=== PATIENT | male | born 1975 | race Caucasian/White ===

== ENCOUNTER 2016-05-16 13:39 | Emergency (ER) | payer BC ==
[~2016-05-16] VITALS: Ht 180.3 cm; Wt 126.0 kg
--- OUTSIDE RECORDS SUMMARY | 2016-05-16 13:42 | XMS REPORT | Summary of Care ---
Author Author Chris Mckeon M.D. 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 Depression (311, F32.9) Status: Active Generalized anxiety disorder (300.02, F41.1) Status: Active Obstructive sleep apnea (327.23, G47.33) Status: Active 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, 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 Started 13-Feb-2014 Active Allergies and Adverse Reactions Name Dates Details No Known Drug Allergies Status: Active Procedures Procedure Dates Details Procedures not documented Immunization Name Dates Details Immunizations not documented Social History Name Dates Details Smoking StatusNever smoker Vital Signs Date Test Result Details 13-Feb-2014 14:44 BP Systolic 125 mm[Hg] Status: BP Diastolic 80 mm[Hg] Status: Heart Rate 69 /min Status: Weight 275 lb Status: Height 71 in Status: O2 SAT 98 % Status: Body Mass Index Calculated 38.35 kg/m2 Status: Body Surface Area Calculated 2.41 m2 Status: Results Date Description Value Details Results not documented Plan of Care Planned Observations Name Dates Details Planned Goals not documented Goal Instructions Instructions not documented Encounters Appointment; Chris Mckeon Encounter Diagnosis: Problem not documented On 13-Feb-2014 14:15 Appointment; Chris Mckeon Encounter Diagnosis: Problem not documented On 08-Dec-2013 15:45
[2016-05-16] MEDS ORDERED: FAMOTIDINE IV STA (14:09)
[2016-05-16] MEDS ORDERED: methylPREDNISolone 125 MG (Solu-MEDROL) VIAL IV STA (14:09)
[2016-05-16] MEDS ORDERED: SODIUM CHLORIDE IV STA (14:09)
[2016-05-16] MEDS ORDERED: ALBUTEROL 0.083% NEB SOLUTION 2.5 MG/3 ML VIAL INH STA (14:09)
[2016-05-16] MEDS ORDERED: SODIUM CHLORIDE FLUSH 10 ML SYR IV PRN (14:10)
[2016-05-16] MEDS ORDERED: diphenhydrAMINE 50 MG/ML INJ (BENADRYL) IV SCH (14:10)
[2016-05-16] MEDS ORDERED: SODIUM CHLORIDE FLUSH 3 ML SYR IV PRN (14:10)
[2016-05-16] MEDS ORDERED: PRED20TA PO (16:11)
[2016-05-16] MEDS ORDERED: ALBU8.5H2 IH (16:11)
[2016-05-16 16:56] VITALS: BP 107/62
== END 2016-05-16 16:54 | disposition home or self-care (01) ==
LOC: ED 13:41
DX: T78.3XXA Angioneurotic edema, initial encounter (principal); R06.02 Shortness of breath; R21 Rash and other nonspecific skin eruption; R06.2 Wheezing
CPT/HCPCS: 94640; 96361; 96374; 96375; 99283; J1200; J2930; J3490; J7030; J7050; J7613

== ENCOUNTER → 2016-06-01 | Outpatient (REF) | payer BC ==
[~2016-06-01] MED LIST: ALBU8.5H2 IH; PRED20TA PO
[2016-06-01 11:27] LABS: ALBUMIN 4.2 g/dL (3.4-5.0); ANION GAP 15.3 MEQ/L (3-15); CALCULATED IONIZED CALCIUM 4.1 mg/dL (3.8-4.6); TOTAL PROTEIN 7.1 g/dL (6.4-8.5)
[2016-06-01 13:43] LABS: BILIRUBIN,URINE Negative (Negative); CLARITY,URINE Clear; COLOR,URINE Yellow; GLUCOSE, URINE (UA) Negative (Negative); LEUKOCYTE ESTERASE, URINE Negative (Negative); PH,URINE 5.5 (5.0 - 8.0); UROBILINOGEN,URINE 0.2 mg/dL (0.2-1.0)
== END ==
LOC: LAB 11:02
PROVIDERS: ATTEND Nurse Practitioner Family
DX: Z00.00 Encounter for general adult medical examination without abnormal findings (principal)
CPT/HCPCS: 80053; 80061; 81003